=== PATIENT | female | born 1965 | race Caucasian/White ===

== ENCOUNTER 2021-05-12 00:50 | Emergency (ER) | payer OTHER ==
[2021-05-12] MEDS ORDERED: ACETAMINOPHEN 500 MG TABLET (FP) PO ONE (01:43)
[2021-05-12 02:13] VITALS: TEMP 98.2; BMI 33.5
[2021-05-12] MEDS ORDERED: morphine SULFATE IMMEDIATE RELEASE 30 MG TAB PO ONE (02:45)
[2021-05-12] MEDS ORDERED: morphine SULFATE IMMEDIATE RELEASE 30 MG TAB ONE (04:22)
[2021-05-12 04:45] VITALS: BP 143/63; PULSE 58
== END 2021-05-12 05:05 | disposition home or self-care (01) ==
LOC: EDBD 00:50 → JER 00:50
DX: M25.512 Pain in left shoulder (principal); M25.562 Pain in left knee; M25.572 Pain in left ankle and joints of left foot; W00.0XXA Fall on same level due to ice and snow, initial encounter
CPT/HCPCS: 71045-TC-FY; 72125-TC; 72170-TC-FY; 73030-TC-LT-FY; 73070-TC-LT-FY; 73560-TC-LT-FY; 73610-TC-LT-FY; 73630-TC-LT; 99285-25; C9803-CS; U0003; U0005

== ENCOUNTER 2022-01-30 04:53 | Day surgery (SDC) | payer OTHER ==
[2022-01-29 15:29] VITALS: BMI 35.2
[2022-01-30] MEDS ORDERED: LIDOCAINE 1%/EPI 1:100000 (20 ML MULTI DOSE VIAL) ONE (07:23)
[2022-01-30] MEDS ORDERED: BUPIVACAINE HCL/PF 0.5% (5MG/ML) 10 ML VIAL ONE (07:23)
[2022-01-30] MEDS ORDERED: PROPOFOL 20 ML ONE (09:14)
[2022-01-30] MEDS ORDERED: ONDANSETRON 4 MG/2 ML VIAL ONE (09:14)
[2022-01-30] MEDS ORDERED: MIDAZOLAM HCL 2 MG/2 ML SINGLE DOSE VIAL ONE (09:14)
[2022-01-30] MEDS ORDERED: DEXAMETHASONE SOD PHOSPHATE 4 MG/1 ML VIAL ONE (09:14)
[2022-01-30] MEDS ORDERED: LIDOCAINE HCL/PF (2%) 40 MG/2 ML VIAL ONE (09:14)
[2022-01-30] MEDS ORDERED: ceFAZolin SODIUM 1 GM VIAL ONE (09:33)
[2022-01-30] MEDS ORDERED: oxyCODONE HCL 5 MG TABLET PO PRN (09:36)
[2022-01-30] MEDS ORDERED: ONDANSETRON 4 MG/2 ML VIAL IVPUSH PRN (09:36)
[2022-01-30] MEDS ORDERED: ACETAMINOPHEN 1000 MG/100 ML BAG IVPB ONE (09:37)
[2022-01-30] MEDS ORDERED: BUPIVACAINE HCL/PF 0.5% (5MG/ML) 10 ML VIAL IJ ONE (09:41)
[2022-01-30] MEDS ORDERED: LIDOCAINE 1%/EPI 1:100000 (20 ML MULTI DOSE VIAL) IJ ONE (09:41)
[2022-01-30] MEDS ORDERED: LACTATED RINGERS SOLUTION 1,000 ML IV SCH (09:45)
[2022-01-30] MEDS ORDERED: KETOROLAC TROMETHAMINE 30 MG/1 ML VIAL ONE (09:55)
[2022-01-30 11:41] VITALS: RESP 20
[2022-01-30 15:20] VITALS: BP 132/72; PULSE 54; TEMP 96.9
== END 2022-01-30 13:15 | disposition home or self-care (01) ==
LOC: JASU-SURG 04:53
PROVIDERS: ATTEND Orthopaedic Surgery
PROC: 0SBD4ZZ Excision of Left Knee Joint, Percutaneous Endoscopic Approach (ICD-10-PCS; 2022-01-30)
PROC: 0SBD4ZZ Excision of Left Knee Joint, Percutaneous Endoscopic Approach (ICD-10-PCS; principal; 2022-01-30 09:41)
DX: M23.92 Unspecified internal derangement of left knee (principal)
CPT/HCPCS: 82962; 94760

== ENCOUNTER 2022-09-07 16:21 | Emergency (ER) | payer OTHER ==
[2022-09-07 16:35] VITALS: BP 151/74; PULSE 68; RESP 18; TEMP 98.5; BMI 42.2
[2022-09-07] MEDS ORDERED: CLINDAMYCIN HCL 300 MG CAPSULE PO ONE (16:49)
[2022-09-07] MEDS ORDERED: CLINDAMYCIN HCL 150 MG CAPSULE (FP) ONE (16:50)
== END 2022-09-07 17:02 | disposition home or self-care (01) ==
LOC: JER 16:21 → JERFT 16:21
DX: L02.416 Cutaneous abscess of left lower limb (principal)
CPT/HCPCS: 87070; 87205; 99283-25